=== PATIENT | female | born 1995 | race Caucasian/White ===

== ENCOUNTER → 2017-10-27 | Outpatient (CLI) | payer OTHER ==
[~2017-10-27] MED LIST: AMT50 PO; ASPI-390 PO; DICY10CA12 PO; ESCI1TAB9 PO; FEXO1TAB46 PO; GADAVIST IV PRN; GLUCAGON FOR INJ 1 MG VIAL IM SCH; LORA-741 PO; MRC50 PO; NURSING VERBAL MED ORDER ONE; ONDA4TAB7 SL; PENT100C6 PO; VNCS150 PEG
--- NOTE | 2017-10-27 10:15 | DIAGNOSTIC IMAGING REPORT ---
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 TECHNIQUE: Multisequence, multiplanar MR imaging of the abdomen and pelvis was performed after the administration of oral and intravenous contrast. IV contrast: 6 mL of Gadavist. COMPARISON: None. FINDINGS: Localizer images: Unremarkable. Lung bases: Lung bases clear. Normal heart size. No pericardial or pleural effusion. Liver: Normal morphology. No liver lesion. Patent hepatic vasculature. Biliary: No intrahepatic or extrahepatic biliary ductal dilatation. Normal gallbladder. Pancreas: Normal. Spleen: Normal. Adrenal glands: Normal. Kidneys and ureters: Normal. No hydronephrosis. Bladder: Normal. Pelvic organs: Uterus and ovaries normal. Bowel: Suboptimal opacification and distention of proximal small bowel. Allowing for this, the bowel is normal. No abnormal bowel wall thickening or hyperenhancement. No perienteric or pericolonic inflammatory change. No bowel obstruction. Peritoneal cavity: No free fluid or intraperitoneal gas. Lymph nodes: No enlarged lymph nodes in the abdomen or pelvis. Vasculature: Aorta and IVC patent and normal in caliber. Abdominal wall: Normal. Musculoskeletal: Normal. IMPRESSION: 1. No acute intra-abdominal pathology. No MR evidence of active inflammation in the bowel. Electronically signed by: Peng Carlos M.D. 10/27/2017 10:13 AM Dictated Date/Time: 10/27/2017 10:05 AM
== END | disposition home or self-care (01) ==
LOC: C.MRI 08:10
PROVIDERS: ATTEND Internal Medicine
DX: K50.819 Crohn's disease of both small and large intestine with unspecified complications (principal)

== ENCOUNTER 2022-09-12 17:23 | Inpatient (IN) ==
[2022-09-12] MEDS ORDERED: OXYTOCIN 30 UNITS/500 ML BAG IV PRN (18:26)
[2022-09-12] MEDS ORDERED: LIDOCAINE 1% LOCAL 20 ML VIAL INFIL PRN (18:26)
[2022-09-12] MEDS ORDERED: hydrALAZINE HCL 20 MG/ML VIAL IV STA (18:29)
[2022-09-12] MEDS: LACTATED RINGER'S 1,000 ML IV PRN (18:58)
[2022-09-12] MEDS: MAGNESIUM SULFATE / WTR 40 GM/1,000 ML BAG IV SCH (19:07)
[2022-09-12 19:10] LABS: Hematocrit (blood only) 38.5 % (37.0-47.0); Hemoglobin 13.6 g/dl (12.0-16.0); Mean Corpuscular Hemoglobin 33.7 pg (25.0-34.0); Mean Corpuscular Hgb Conc 35.3 g/dL (32.0-36.0); Mean Corpuscular Volume 95.3 fL (80.0-100.0); Mean Platelet Volume 10.6 fL (9.4-12.4); Platelet Count 197 K/uL (130-400); RDW Coefficient of Variation 13.2 % (11.5-14.5); RDW Standard Deviation 45.7 fL (36.4-46.3); Red Blood Count 4.04 M/uL (4.20-5.40); White Blood Count 8.92 K/ul (4.8-10.8)
[2022-09-12] MEDS: MAG SULFATE 4GM BOLUS FROM BAG IV ONE ×2 (19:10→19:11)
[2022-09-12 19:26] LABS: Albumin Globulin Ratio 1.2 (0.9-2); Albumin Level 3.8 gm/dl (3.4-5.0); BUN Creatinine Ratio 16.4 (10-20); Bilirubin,Total 0.4 mg/dl (0.2-1.0); Calcium 9.6 mg/dl (8.5-10.1); Creatinine Clr Calc Pharmacy 156.4 ml/min; Est GFR (Non-African American) 122.5 ml/min; Globulin 3.2 gm/dl (2.5-4.0); Potassium 3.6 mmol/L (3.5-5.1)
[2022-09-12] MEDS: LABETALOL HCL 200 MG TAB PO SCH (19:49)
--- NOTE | 2022-09-12 20:51 | Obstetrical Progress Note ---
Date of Service September 12, 2022 Assessment & Plan (1) Gestational hypertension: Plan: Pt admitted for elevated BP On arrival to L&D, BP was 160/100's No proteinuria on dipstick Pt reported headache but no RUQ pain, SOB or visual changes pt received IV hydralazine and was started on labetalol Magnesium sulphate was started for seizure prophylaxis PIH labs were ordered BP stabilized at 138/88 FHR; CAT1 Ctx; None 'VE Cl/50%/post Quijano bulb placed in cervix with 30cc saline w/o difficulty Will start Pitocin augmentation Plan Continue with labor induction Will stop Magnesium if PIH labs are Nml Admission and Anticipated Discharge Date Admission Date: September 12, 2022 Results & Data ([facility]) Vital Signs (Past 12 Hours) Vital Signs Temp Pulse Resp BP Pulse Ox 09/12/22 20:00 18 09/12/22 17:41 37.2 C 18 09/12/22 20:40 95 H 100 09/12/22 20:35 98 H 100 09/12/22 20:33 103 H 138/88 09/12/22 20:30 111 H 99 09/12/22 20:25 100 H 98 09/12/22 20:20 98 H 99 09/12/22 20:18 93 H 134/87 09/12/22 20:15 98 H 99 09/12/22 20:10 97 H 99 09/12/22 20:05 96 H 99 09/12/22 20:03 98 H 156/97 H 09/12/22 20:00 105 H 100 09/12/22 19:55 107 H 91 09/12/22 19:54 107 H 90 09/12/22 19:50 105 H 99 09/12/22 19:48 108 H 159/108 H 09/12/22 19:45 101 H 98 09/12/22 19:40 103 H 98 09/12/22 19:07 20 09/12/22 19:35 101 H 99 09/12/22 19:34 94 H 163/112 H 09/12/22 19:30 97 H 96 09/12/22 19:26 107 H 93 09/12/22 19:25 72 98 09/12/22 19:20 114 H 97 09/12/22 19:18 96 H 144/88 H 09/12/22 19:15 104 H 96 09/12/22 19:10 96 H 96 09/12/22 19:09 85 94 09/12/22 19:08 81 153/105 H 09/12/22 19:00 36.8 C 76 18 150/101 H 09/12/22 18:37 90 184/125 H 09/12/22 18:22 90 167/107 H 09/12/22 18:07 70 155/110 H 09/12/22 17:52 73 153/106 H 09/12/22 17:35 85 160/106 H
[2022-09-12 20:57] LABS: Total Protein Urine Random 15.9 mg/dl (0-11.9)
[2022-09-12 21:02] LABS: Creatinine Urine Random 16.5 mg/dl
[2022-09-12] MEDS: OXYTOCIN 30 UNITS/500 ML BAG IV PRN (21:40)
--- NOTE | 2022-09-13 05:56 | Obstetrical Progress Note ---
Date of Service September 13, 2022 Assessment & Plan (1) Gestational hypertension: Plan: Pt doing well Preeclampsia on Mag and tolerating it well Stable BP 131/87 FHR: CAT1 Ctx; irregular On Pitocin SROM at Midnight on 09/13/22 VE; 5-6/50/-1 IUPC placed w/o difficulty continue labor induction Admission and Anticipated Discharge Date Admission Date: September 12, 2022 Results & Data ([facility]) Vital Signs (Past 12 Hours) Vital Signs Temp Pulse Resp BP Pulse Ox 09/13/22 04:00 18 09/13/22 05:00 18 09/13/22 03:00 18 09/13/22 02:00 18 09/13/22 01:00 18 09/13/22 00:00 18 09/12/22 23:00 18 09/12/22 22:00 18 09/12/22 21:00 18 09/12/22 20:00 18 09/13/22 05:50 97 H 98 09/13/22 05:45 94 H 99 09/13/22 05:40 94 H 96 09/13/22 05:35 93 H 98 09/13/22 05:33 97 H 131/87 09/13/22 05:30 93 H 99 09/13/22 05:25 103 H 99 09/13/22 05:20 101 H 94 09/13/22 05:00 37.2 C 09/13/22 05:18 101 H 93 09/13/22 05:15 111 H 95 09/13/22 05:10 102 H 94 09/13/22 05:05 97 H 94 09/13/22 05:04 93 H 124/75 09/13/22 05:00 96 H 95 09/13/22 04:55 94 H 97 09/13/22 04:50 108 H 97 09/13/22 04:45 96 H 97 09/13/22 04:40 95 H 96 09/13/22 04:35 100 H 98 09/13/22 04:34 97 H 141/78 H 09/13/22 04:30 100 H 96 09/13/22 04:27 95 H 94 09/13/22 04:25 95 H 96 09/13/22 04:20 97 H 95 09/13/22 04:15 96 H 95 09/13/22 04:10 96 H 95 09/13/22 04:05 98 H 97 09/13/22 04:04 100 H 128/85 02 04:00 98 H 95 09/13/22 03:55 92 H 96 09/13/22 03:50 89 96 09/13/22 03:45 94 H 97 09/13/22 03:40 95 H 96 09/13/22 03:35 86 97 02 03:33 83 135/87 09/13/22 03:30 90 97 09/13/22 03:25 85 98 09/13/22 03:20 93 H 98 09/13/22 03:15 86 98 09/13/22 03:11 88 94 09/13/22 03:10 89 99 09/13/22 03:05 89 138/85 99 09/13/22 03:00 37.0 C 97 H 98 09/13/22 02:55 91 H 99 09/13/22 02:50 91 H 98 09/13/22 02:45 84 97 09/13/22 02:40 94 H 99 09/13/22 02:35 97 H 99 09/13/22 02:33 101 H 144/95 H 09/13/22 02:30 91 H 98 09/13/22 02:25 92 H 97 09/13/22 02:20 98 H 97 09/13/22 02:15 91 H 98 09/13/22 02:10 93 H 96 09/13/22 02:05 91 H 97 09/13/22 02:03 83 132/85 09/13/22 02:00 90 97 09/13/22 01:55 89 96 09/13/22 01:50 89 96 09/13/22 01:45 89 98 09/13/22 01:40 90 97 09/13/22 01:35 94 H 96 09/13/22 01:33 87 139/88 02 01:30 92 H 97 09/13/22 01:25 90 96 09/13/22 01:20 90 98 09/13/22 01:15 93 H 97 09/13/22 01:10 94 H 98 09/13/22 01:05 104 H 99 09/13/22 01:04 96 H 136/82 09/13/22 01:00 99 H 99 09/13/22 00:55 92 H 99 09/13/22 00:50 96 H 99 09/13/22 00:45 37.0 C 109 H 98 09/13/22 00:41 98 H 94 09/13/22 00:40 99 H 95 09/13/22 00:35 101 H 94 09/13/22 00:34 100 H 116/68 09/13/22 00:32 99 H 94 09/13/22 00:30 103 H 94 09/13/22 00:25 98 H 95 09/13/22 00:20 103 H 95 09/13/22 00:18 98 H 93 09/13/22 00:15 104 H 95 09/13/22 00:13 100 H 94 09/13/22 00:10 99 H 93 09/13/22 00:08 97 H 94 09/13/22 00:05 100 H 95 09/13/22 00:04 96 H 124/71 09/13/22 00:01 101 H 94 09/13/22 00:00 98 H 95 09/12/22 23:55 95 H 94 09/12/22 23:53 97 H 94 09/12/22 23:50 96 H 94 09/12/22 23:46 93 H 94 09/12/22 23:45 96 H 95 09/12/22 23:40 96 H 95 09/12/22 23:36 92 H 94 09/12/22 23:35 92 H 94 09/12/22 23:33 88 117/74 09/12/22 23:31 94 H 94 09/12/22 23:30 96 H 96 09/12/22 23:25 94 H 94 09/12/22 23:20 98 H 95 09/12/22 23:19 95 H 94 09/12/22 23:15 84 96 09/12/22 23:10 80 98 09/12/22 23:05 79 97 09/12/22 23:03 80 135/81 09/12/22 23:00 36.6 C 81 98 09/12/22 22:55 83 98 09/12/22 22:50 81 99 09/12/22 22:45 85 98 09/12/22 22:40 84 98 09/12/22 22:35 80 99 09/12/22 22:33 82 139/83 09/12/22 22:30 81 98 09/12/22 22:25 87 98 09/12/22 22:20 89 97 09/12/22 22:19 91 H 137/87 09/12/22 22:15 85 97 09/12/22 22:10 91 H 97 09/12/22 22:05 89 98 09/12/22 22:03 91 H 151/87 H 09/12/22 22:00 86 98 09/12/22 21:55 84 98 09/12/22 21:50 84 98 09/12/22 21:48 87 137/83 09/12/22 21:45 89 98 09/12/22 21:40 89 98 09/12/22 21:35 84 98 09/12/22 21:34 82 146/86 H 09/12/22 21:30 88 98 09/12/22 21:25 85 98 09/12/22 21:20 88 98 09/12/22 21:19 85 157/105 H 09/12/22 21:15 87 97 09/12/22 21:10 89 98 09/12/22 21:05 90 99 09/12/22 21:03 84 136/81 09/12/22 21:00 93 H 99 09/12/22 20:55 92 H 98 09/12/22 20:50 101 H 100 09/12/22 20:48 93 H 134/84 09/12/22 20:45 97 H 99 09/12/22 20:40 95 H 100 09/12/22 20:35 98 H 100 09/12/22 20:33 103 H 138/88 09/12/22 20:30 111 H 99 09/12/22 20:25 100 H 98 09/12/22 20:20 98 H 99 09/12/22 20:18 93 H 134/87 09/12/22 20:15 98 H 99 09/12/22 20:10 97 H 99 09/12/22 20:05 96 H 99 09/12/22 20:03 98 H 156/97 H 09/12/22 20:00 105 H 100 09/12/22 19:55 107 H 91 09/12/22 19:54 107 H 90 09/12/22 19:50 105 H 99 09/12/22 19:48 108 H 159/108 H 09/12/22 19:45 101 H 98 09/12/22 19:40 103 H 98 09/12/22 19:07 20 09/12/22 19:35 101 H 99 09/12/22 19:34 94 H 163/112 H 09/12/22 19:30 97 H 96 09/12/22 19:26 107 H 93 09/12/22 19:25 72 98 09/12/22 19:20 114 H 97 09/12/22 19:18 96 H 144/88 H 09/12/22 19:15 104 H 96 09/12/22 19:10 96 H 96 09/12/22 19:09 85 94 09/12/22 19:08 81 153/105 H 09/12/22 19:00 36.8 C 76 18 150/101 H 09/12/22 18:37 90 184/125 H 09/12/22 18:22 90 167/107 H 09/12/22 18:07 70 155/110 H
[2022-09-13 06:26] LABS: Basophils # (auto) 0.02 K/uL (0-0.2); Basophils % (auto) 0.2 %; Hematocrit (blood only) 35.5 % (37.0-47.0); Hemoglobin 12.5 g/dl (12.0-16.0); Immature Granulocytes # (auto) 0.05 K/uL (0.01-0.20); Immature Granulocytes % (auto) 0.4 %; Lymphocytes # (auto) 1.52 K/uL (1.2-3.4); Lymphocytes % (auto) 12.3 %; Mean Corpuscular Hgb Conc 35.2 g/dL (32.0-36.0); Mean Corpuscular Volume 96.5 fL (80.0-100.0); Mean Platelet Volume 10.6 fL (9.4-12.4); Monocytes # (auto) 0.75 K/uL (0.11-0.59); Monocytes % (auto) 6.1 %; Neutrophils # (auto) 9.97 K/uL (1.40-6.50); Platelet Count 196 K/uL (130-400); RDW Coefficient of Variation 13.3 % (11.5-14.5); RDW Standard Deviation 47.1 fL (36.4-46.3); Red Blood Count 3.68 M/uL (4.20-5.40); White Blood Count 12.31 K/ul (4.8-10.8)
[2022-09-13 06:44] LABS: Albumin Globulin Ratio 1.1 (0.9-2); Albumin Level 3.3 gm/dl (3.4-5.0); BUN Creatinine Ratio 9.2 (10-20); Bilirubin,Total 0.4 mg/dl (0.2-1.0); Calcium 7.6 mg/dl (8.5-10.1); Creatinine Clr Calc Pharmacy 146.8 ml/min; Est GFR (African American) 139.1 ml/min; Globulin 2.9 gm/dl (2.5-4.0); Potassium 3.7 mmol/L (3.5-5.1); Total Protein 6.2 gm/dl (6.0-8.3)
[2022-09-13] MEDS: LACTATED RINGER'S 1,000 ML IV PRN ×3 (06:44→20:59)
[2022-09-13] MEDS ORDERED: ePHEDrine sulfate 50 MG/ML AMP ONE (07:12)
[2022-09-13] MEDS ORDERED: fentaNYL 2MCG/ML ROPIVACAINE 1.25MG/ML 100 ML BAG EPI ONE (07:13)
[2022-09-13] MEDS ORDERED: fentaNYL citrate 100 MCG/2 ML VIAL ONE ×2 (07:13→22:06)
[2022-09-13] MEDS ORDERED: BUPIVACAINE 0.25% 30 ML VIAL ONE ×2 (07:13→22:06)
[2022-09-13] MEDS ORDERED: LIDOCAINE 2%/EPINEPHRINE 1:200,000 20 ML SDV ONE (07:13)
[2022-09-13] MEDS ORDERED: SODIUM CHLORIDE 0.9% INJ 10 ML VIAL ONE ×2 (07:13→22:06)
--- NOTE | 2022-09-13 07:43 | Anesthesiology Consultation ---
Date of Service September 13, 2022 Assessment & Plan Chart Review Chart Review: Acceptable Risk for Surgery, Patient NOT seen in Pre Admission Testing and Acceptable Risk for Labor Epidural Consults Requested none ASA ASA2 Proposed Anesthesia Anesthesia Type: Labor Epidural and CSE History Height/Weight Height: 5 ft 8 in Weight: 86.183 kg Allergies Allergy/AdvReac Type Severity Reaction Status Date / Time No Known Allergies Allergy Verified 09/12/22 18:07 Medications Home Medications Medication Instructions Recorded Confirmed Last Taken ESCITALOPRAM OXALATE (LEXAPRO) 10 mg PO QAM #0 tabs 11/18/14 09/12/22 09/12/22 0600 ONDANSETRON (ZOFRAN ODT) 4 mg sublingual Q6H PRN Nausea or 11/18/14 09/12/22 Unknown Vomiting #6 tabs Stelara 90 SC Q8WK Chrons disease 09/12/22 07/25/22 iron,carbonyl 65 mg-vitamin C 125 1 tab PO BID 09/12/22 09/12/22 09/12/22 mg tablet,delayed release 0600 (Vitron-C) Active Medications Generic Name Dose Route Start Last Admin Trade Name Freq PRN Reason Stop Dose Admin Lactated Ringer's 1,000 mls @ 75 mls/hr 09/12/22 18:26 09/13/22 06:50 Lr IV 09/14/22 18:25 999 mls/hr .[id number] PRN Infusion L&D Protocol Protocol Magnesium Sulfate 40 gm in 1,000 mls @ 50 mls/hr 09/12/22 18:30 09/13/22 07:10 Magnesium Sulfate / Wtr IV 10/12/22 18:29 50 mls/hr .Q20H LEIGH ANN Infusion Oxytocin 30 units in 500 mls @ 16 mls/hr 09/12/22 20:51 09/13/22 06:40 Pitocin IV 09/14/22 20:50 0.96 units/hr .Q24H PRN 16 mls/hr Labor Induction/Augmentation Titration Protocol 0.96 UNITS/HR Labetalol HCl 200 mg 09/12/22 19:00 09/12/22 19:49 Labetalol Hcl 200 Mg Tab PO 10/12/22 18:59 200 mg Q12H LEIGH ANN Administration Past Medical History Medical History Anemia affecting Anxiety Herpes genitalia Interstitial cystitis Migraine Placenta succenturiata Exercise / Class Metabolic Activity II 4-5 Yardwork/Stairs/Walk up hill Past Surgical History Surgical History Hx of tonsillectomy [place] teeth extracted Past Anesthesia History No Hx of Anesthesia Complications and No Family Hx of Anesthesia Complications History of PONV No Hx of PONV and No Hx of Motion Sickness Social History Smoking Status: Never smoker Do You Dip or Chew Tobacco: No Hx Alcohol Use: No Hx Substance Use: No Physical Exam Vital Signs Last Vital Signs Temp 36.7 C 09/13/22 07:11 Pulse 101 H 09/13/22 07:40 Resp 20 09/13/22 07:11 BP 132/79 09/13/22 07:34 Pulse Ox 95 09/13/22 07:40 Testing Laboratory Results 09/13/22 06:09 09/13/22 06:09
[2022-09-13] MEDS ORDERED: NALBUPHINE HCL INJ 10 MG/ML AMP IV PRN (08:14)
[2022-09-13] MEDS ORDERED: ePHEDrine sulfate 50 MG/ML AMP IV PRN ×2 (08:14)
[2022-09-13] MEDS ORDERED: NALOXONE HCL 0.4 MG/1 ML VIAL/CARP IV PRN (08:14)
[2022-09-13] MEDS ORDERED: NALOXONE HCL 1 MG in SODIUM CHLORIDE 0.9% 1000ML 1,000 ML IV PRN (08:14)
[2022-09-13] MEDS ORDERED: ATROPINE SULFATE 0.1 MG/ML 10ML SYR IV PRN (08:14)
[2022-09-13] MEDS ORDERED: diphenhydrAMINE 50 MG/ML VIAL IV PRN (08:14)
[2022-09-13] MEDS ORDERED: PROMETHAZINE HCL 25 MG in SODIUM CHLORIDE 0.9% 50 ML IV PRN (08:14)
[2022-09-13] MEDS: LABETALOL HCL 200 MG TAB PO SCH ×2 (08:44→19:43)
[2022-09-13] MEDS: ONDANSETRON INJ 2 MG/ML 2 ML VIAL IV PRN ×2 (09:34→22:59)
[2022-09-13] MEDS ORDERED: BUTORPHANOL TARTRATE 1 MG/ML VIAL IV PRN (09:39)
[2022-09-13] MEDS: MAGNESIUM SULFATE / WTR 40 GM/1,000 ML BAG IV SCH (12:46)
[2022-09-13] MEDS: fentaNYL 2MCG/ML ROPIVACAINE 1.25MG/ML 100 ML BAG EPI PRN ×2 (17:13→22:58)
[2022-09-13] MEDS ORDERED: NURSING L&D Epidural Breakthrough Pain Update ONE (21:03)
--- NOTE | 2022-09-13 22:38 | Communication Note ---
Date of Service: September 13, 2022 At 2234, patient epidural catheter was bolused w/ 12 ml 0.17% bupivacaine + 100 mcgs fentanyl;negative aspiration w/ incremental injection;vital signs stable.
--- NOTE | 2022-09-13 22:56 | Labor Progress Brief Note ---
Date of Service September 13, 2022 Assessment & Plan Admission and Anticipated Discharge Date Admission Date: September 12, 2022 Physical Exam Genitourinary: Manual OB Exam: + cervical dilation 7 cm, + cervical effacement 80% and 90% and + station -1 OB Exam Monitor Tracing: + external FHT monitor used, + intra-uterine pressure catheter used, + category I and + normal FHT variability Results & Data ([facility]) Vital Signs (Past 12 Hours) Vital Signs Temp Pulse Resp BP Pulse Ox 09/13/22 20:15 18 09/13/22 21:00 18 09/13/22 19:10 18 09/13/22 19:10 18 09/13/22 15:30 20 09/13/22 22:50 79 95 09/13/22 22:48 70 93 09/13/22 22:45 87 97 09/13/22 22:43 82 129/84 09/13/22 22:40 80 96 09/13/22 22:37 75 92 09/13/22 22:35 84 96 09/13/22 22:30 87 95 09/13/22 22:28 87 130/79 09/13/22 22:25 75 96 09/13/22 22:20 75 97 09/13/22 22:15 90 97 09/13/22 22:14 77 123/78 09/13/22 22:10 76 95 09/13/22 22:05 76 95 09/13/22 22:00 78 18 96 09/13/22 21:59 76 122/74 09/13/22 21:56 75 94 09/13/22 21:55 78 96 09/13/22 21:50 75 95 09/13/22 21:45 78 96 09/13/22 21:44 83 129/76 09/13/22 21:40 78 95 09/13/22 21:36 79 94 09/13/22 21:35 78 96 09/13/22 21:00 18 09/13/22 21:00 18 09/13/22 21:30 74 18 95 09/13/22 21:28 76 119/66 09/13/22 21:25 85 97 09/13/22 21:20 80 95 09/13/22 21:15 76 120/69 95 09/13/22 21:12 78 94 09/13/22 21:10 75 95 09/13/22 21:07 74 94 09/13/22 21:05 85 97 09/13/22 21:00 94 09/13/22 21:00 78 09/13/22 21:00 77 94 09/13/22 20:58 83 125/77 09/13/22 20:55 81 94 09/13/22 20:53 79 93 09/13/22 20:50 80 96 09/13/22 20:45 84 93 09/13/22 20:44 83 129/86 09/13/22 20:40 86 95 09/13/22 20:39 81 94 09/13/22 20:35 78 93 09/13/22 20:33 81 94 09/13/22 20:30 37.0 C 84 18 93 09/13/22 20:28 77 09/13/22 20:28 81 119/69 94 09/13/22 20:25 87 94 09/13/22 20:20 78 94 09/13/22 20:17 74 94 09/13/22 20:15 84 98 09/13/22 20:13 75 120/75 09/13/22 20:10 92 H 97 09/13/22 20:08 84 94 09/13/22 20:05 89 97 09/13/22 20:00 80 18 95 09/13/22 19:58 77 121/82 09/13/22 19:55 85 98 09/13/22 19:50 86 97 09/13/22 19:45 81 99 09/13/22 19:44 81 122/74 09/13/22 19:40 85 99 09/13/22 19:35 78 99 09/13/22 19:30 78 18 99 09/13/22 19:28 72 127/90 09/13/22 19:25 73 98 09/13/22 19:20 68 98 09/13/22 19:15 36.5 C 82 18 98 09/13/22 19:13 67 127/93 09/13/22 19:10 71 98 09/13/22 19:05 74 99 09/13/22 19:00 78 99 09/13/22 18:58 72 132/94 09/13/22 18:55 94 09/13/22 18:55 68 09/13/22 18:55 68 96 09/13/22 18:50 80 98 09/13/22 18:45 83 98 09/13/22 18:43 68 135/102 H 09/13/22 18:40 77 96 09/13/22 18:35 75 96 09/13/22 18:30 72 97 09/13/22 18:28 73 133/96 09/13/22 18:25 74 98 09/13/22 18:20 73 98 09/13/22 17:59 20 09/13/22 17:59 20 09/13/22 18:15 72 97 09/13/22 18:13 77 138/97 09/13/22 18:10 78 97 09/13/22 18:05 73 98 09/13/22 18:00 70 96 09/13/22 17:58 69 131/92 09/13/22 17:55 71 97 09/13/22 17:50 74 98 09/13/22 17:45 72 97 09/13/22 17:43 71 136/91 09/13/22 17:40 74 96 09/13/22 17:35 76 98 09/13/22 17:30 70 131/83 96 09/13/22 17:01 20 09/13/22 17:01 37.0 C 20 09/13/22 17:25 69 96 09/13/22 17:20 78 99 09/13/22 17:15 85 97 09/13/22 17:13 80 120/78 09/13/22 17:10 94 H 95 09/13/22 17:08 79 94 09/13/22 17:05 90 95 09/13/22 17:03 84 94 09/13/22 17:00 76 96 09/13/22 16:58 79 113/65 09/13/22 16:54 79 94 09/13/22 16:55 80 94 09/13/22 16:50 85 95 09/13/22 16:49 80 94 09/13/22 16:45 77 96 09/13/22 16:43 78 111/67 09/13/22 16:40 82 96 09/13/22 16:35 82 97 09/13/22 16:30 80 96 09/13/22 16:28 74 117/72 09/13/22 16:25 81 97 09/13/22 16:20 74 97 02/25/23 16:15 74 97 09/13/22 16:13 72 113/70 09/13/22 16:10 81 98 09/13/22 16:05 85 98 09/13/22 16:00 76 98 09/13/22 15:58 81 18 121/75 09/13/22 15:55 82 97 09/13/22 15:50 87 98 09/13/22 15:45 89 99 09/13/22 15:44 80 136/90 09/13/22 15:40 78 98 09/13/22 15:35 74 97 09/13/22 15:30 89 100 09/13/22 15:28 75 126/80 09/13/22 15:25 73 98 09/13/22 15:20 75 98 09/13/22 15:15 81 97 09/13/22 15:13 75 124/78 09/13/22 15:10 83 95 09/13/22 15:05 81 95 09/13/22 15:01 85 94 09/13/22 15:00 82 95 09/13/22 14:58 36.9 C 81 18 113/73 09/13/22 14:55 83 96 09/13/22 14:51 80 93 09/13/22 14:50 88 96 09/13/22 14:45 80 95 09/13/22 14:43 78 121/79 09/13/22 14:40 78 95 09/13/22 14:35 77 95 09/13/22 14:30 75 98 09/13/22 14:28 77 118/81 09/13/22 14:25 78 97 09/13/22 14:20 76 99 09/13/22 13:59 18 09/13/22 13:59 18 09/13/22 14:15 82 99 09/13/22 14:13 74 126/81 09/13/22 14:10 72 95 09/13/22 14:05 71 95 09/13/22 14:00 75 95 09/13/22 13:58 72 122/79 09/13/22 13:55 74 94 09/13/22 13:50 76 97 09/13/22 13:45 77 98 09/13/22 13:43 67 125/85 09/13/22 13:40 78 95 09/13/22 13:36 69 94 09/13/22 13:35 69 95 09/13/22 13:30 78 121/79 95 09/13/22 13:25 76 97 09/13/22 12:59 18 09/13/22 12:59 36.5 C 18 09/13/22 13:20 79 97 09/13/22 13:15 77 97 09/13/22 13:13 70 123/84 09/13/22 13:10 82 97 09/13/22 13:05 76 97 09/13/22 13:00 84 97 09/13/22 12:58 75 122/82 09/13/22 12:55 78 97 09/13/22 12:50 69 95 09/13/22 12:45 79 96 09/13/22 12:44 77 20 126/81 09/13/22 12:40 79 94 09/13/22 12:35 87 95 09/13/22 12:34 81 94 09/13/22 12:30 83 95 09/13/22 12:28 76 09/13/22 12:28 75 115/73 94 09/13/22 12:25 81 96 09/13/22 12:20 79 95 09/13/22 12:18 78 94 09/13/22 12:15 84 96 09/13/22 12:13 76 121/75 09/13/22 12:12 80 94 09/13/22 12:10 81 96 09/13/22 12:05 87 96 09/13/22 12:01 78 94 09/13/22 11:59 18 09/13/22 11:59 18 09/13/22 12:00 83 94 09/13/22 11:58 80 114/67 09/13/22 11:56 84 94 09/13/22 11:55 87 95 09/13/22 11:49 83 94 09/13/22 11:50 82 95 09/13/22 11:45 80 94 09/13/22 11:43 84 118/73 09/13/22 11:41 80 94 09/13/22 11:40 81 94 09/13/22 11:35 80 96 09/13/22 11:34 88 93 09/13/22 11:29 80 02 11:30 87 95 09/13/22 11:29 84 116/74 94 09/13/22 11:25 91 H 96 09/13/22 11:23 82 94 09/13/22 11:20 88 94 09/13/22 11:07 20 09/13/22 11:07 37.0 C 20 09/13/22 11:17 81 94 09/13/22 11:15 88 96 09/13/22 11:13 84 120/75 09/13/22 11:10 80 97 09/13/22 11:05 86 98 09/13/22 11:00 87 95 09/13/22 10:58 81 129/73 09/13/22 10:57 84 94
[2022-09-14] MEDS ORDERED: CALCIUM CARBONATE 500 MG CHEWABLE TAB PO PRN (01:05)
[2022-09-14] MEDS ORDERED: Nursing to Pharmacy Communication SCH ×2 (01:15→05:30)
[2022-09-14] MEDS ORDERED: BUPIVACAINE 0.25% 30 ML VIAL ONE (01:51)
--- NOTE | 2022-09-14 02:12 | Communication Note ---
Date of Service: September 14, 2022 pt with increased pain. bolused 5ml of 2% lidocaine mixed with 5ml of 0.25% bupivicaine in divided doses. vss. no complications.
[2022-09-14] MEDS: OXYTOCIN 30 UNITS/500 ML BAG IV PRN (03:30)
[2022-09-14] MEDS: MAGNESIUM SULFATE / WTR 40 GM/1,000 ML BAG IV SCH ×2 (05:28→09:21)
[2022-09-14] MEDS: fentaNYL 2MCG/ML ROPIVACAINE 1.25MG/ML 100 ML BAG EPI PRN (05:54)
--- NOTE | 2022-09-14 06:20 | Labor Progress Brief Note ---
Date of Service September 14, 2022 Assessment & Plan Admission and Anticipated Discharge Date Admission Date: September 12, 2022 Physical Exam Genitourinary: Manual OB Exam: + cervical dilation 7 cm, + cervical effacement 90% and + station -1 OB Exam Monitor Tracing: + external FHT monitor used, + external uterine monitor used, + category I and + normal FHT variability gave patient option to have for failure to progress vs. continue to labor they will decide and let me know Results & Data ([facility]) Vital Signs (Past 12 Hours) Vital Signs Temp Pulse Resp BP Pulse Ox 09/14/22 03:00 16 09/14/22 02:00 18 09/14/22 01:00 18 09/14/22 00:00 18 09/13/22 23:00 18 09/13/22 20:15 18 09/13/22 21:00 18 09/13/22 19:10 18 09/13/22 19:10 18 09/14/22 06:15 73 153/91 H 97 09/14/22 06:10 85 99 09/14/22 06:05 89 99 09/14/22 06:01 75 118/85 09/14/22 06:00 37.0 C 82 18 96 09/14/22 05:55 68 99 09/14/22 05:50 87 98 09/14/22 05:45 74 96 09/14/22 05:44 70 136/86 09/14/22 05:40 74 95 09/14/22 05:35 80 96 09/14/22 05:30 85 18 98 09/14/22 05:29 85 138/90 09/14/22 05:25 95 H 94 09/14/22 05:20 81 94 09/14/22 05:15 77 95 09/14/22 05:14 80 129/82 09/14/22 05:10 77 95 09/14/22 05:05 80 94 09/14/22 05:00 37.0 C 74 16 95 09/14/22 04:59 75 127/77 09/14/22 04:55 76 95 09/14/22 04:50 77 96 09/14/22 04:45 73 95 09/14/22 04:44 71 121/77 09/14/22 04:40 73 94 02/26/23 04:35 77 96 09/14/22 04:30 74 16 95 09/14/22 04:29 76 116/70 09/14/22 04:25 78 95 09/14/22 04:20 75 95 09/14/22 03:30 16 09/14/22 03:30 36.9 C 16 09/14/22 04:15 76 94 09/14/22 04:14 74 118/72 09/14/22 04:10 75 94 09/14/22 04:05 75 94 09/14/22 04:00 83 16 95 09/14/22 03:59 84 117/66 09/14/22 03:55 82 95 09/14/22 03:50 81 95 09/14/22 03:45 83 94 09/14/22 03:44 83 117/68 09/14/22 03:40 83 94 09/14/22 03:35 82 95 09/14/22 03:30 36.9 C 79 16 94 09/14/22 03:29 79 120/71 09/14/22 03:25 83 94 09/14/22 03:20 82 94 09/14/22 03:15 81 94 09/14/22 03:14 80 105/61 09/14/22 03:10 80 94 09/14/22 03:05 77 94 09/14/22 03:00 77 16 94 09/14/22 02:59 76 109/63 09/14/22 02:55 72 94 09/14/22 02:50 70 93 09/14/22 02:45 69 94 09/14/22 02:44 80 101/63 09/14/22 02:40 71 94 09/14/22 02:39 76 101/64 09/14/22 02:35 76 102/67 94 09/14/22 02:30 71 16 94 09/14/22 02:29 68 104/58 L 09/14/22 02:25 69 95 09/14/22 02:23 69 95/52 L 09/14/22 02:20 67 96 09/14/22 02:15 68 96 09/14/22 02:10 87 97 09/14/22 02:09 84 125/81 09/14/22 02:05 81 95 09/14/22 02:03 74 117/70 09/14/22 02:00 87 18 95 02/26/23 01:58 75 117/69 09/14/22 01:55 74 93 09/14/22 01:50 76 94 09/14/22 01:45 76 94 09/14/22 01:43 72 122/71 09/14/22 01:40 72 94 09/14/22 01:35 95 H 96 09/14/22 01:30 73 18 94 09/14/22 01:28 76 120/70 09/14/22 01:25 74 94 09/14/22 01:20 74 94 09/14/22 01:15 78 96 09/14/22 01:14 73 124/76 09/14/22 01:10 76 94 09/14/22 01:05 78 96 09/14/22 01:00 36.9 C 79 18 98 09/14/22 00:59 76 132/82 09/14/22 00:55 80 95 09/14/22 00:50 77 98 09/14/22 00:45 70 94 09/14/22 00:43 70 142/86 H 09/14/22 00:40 71 94 09/14/22 00:35 70 94 09/14/22 00:30 72 18 94 09/14/22 00:28 71 137/80 09/13/22 23:00 18 09/13/22 23:00 18 09/14/22 00:25 71 94 09/14/22 00:20 71 93 09/14/22 00:15 71 94 09/14/22 00:13 70 132/80 09/14/22 00:10 72 94 09/14/22 00:05 69 94 09/14/22 00:00 67 93 09/13/22 23:59 69 130/78 09/13/22 23:55 70 93 09/13/22 23:50 70 94 09/13/22 23:45 69 93 09/13/22 23:44 70 139/76 09/13/22 23:40 73 94 09/13/22 23:35 66 94 09/13/22 23:30 69 18 96 09/13/22 23:28 69 134/83 09/13/22 23:25 73 95 09/13/22 23:20 94 09/13/22 23:20 70 09/13/22 23:20 72 95 09/13/22 23:15 94 09/13/22 23:15 67 09/13/22 23:15 68 95 09/13/22 23:14 76 141/76 H 09/13/22 23:10 78 94 09/13/22 23:05 75 96 09/13/22 23:02 73 93 09/13/22 23:00 88 18 96 09/13/22 22:59 101 H 157/94 H 09/13/22 22:56 68 122/81 09/13/22 22:55 71 119/81 93 09/13/22 22:50 79 95 09/13/22 22:48 70 93 09/13/22 22:45 87 97 09/13/22 22:43 82 129/84 09/13/22 22:40 80 96 09/13/22 22:37 75 92 09/13/22 22:35 84 96 09/13/22 22:30 37.0 C 87 18 95 09/13/22 22:28 87 130/79 09/13/22 22:25 75 96 09/13/22 22:20 75 97 09/13/22 22:15 90 97 09/13/22 22:14 77 123/78 09/13/22 22:10 76 95 09/13/22 22:05 76 95 09/13/22 22:00 78 18 96 09/13/22 21:59 76 122/74 09/13/22 21:56 75 94 09/13/22 21:55 78 96 09/13/22 21:50 75 95 09/13/22 21:45 78 96 09/13/22 21:44 83 129/76 09/13/22 21:40 78 95 09/13/22 21:36 79 94 09/13/22 21:35 78 96 09/13/22 21:00 18 09/13/22 21:00 18 09/13/22 21:30 74 18 95 09/13/22 21:28 76 119/66 09/13/22 21:25 85 97 09/13/22 21:20 80 95 09/13/22 21:15 76 120/69 95 09/13/22 21:12 78 94 09/13/22 21:10 75 95 09/13/22 21:07 74 94 09/13/22 21:05 85 97 0225/23 21:00 94 09/13/22 21:00 78 02 21:00 77 94 09/13/22 20:58 83 125/77 09/13/22 20:55 81 94 09/13/22 20:53 79 93 09/13/22 20:50 80 96 09/13/22 20:45 84 93 09/13/22 20:44 83 129/86 09/13/22 20:40 86 95 09/13/22 20:39 81 94 09/13/22 20:35 78 93 09/13/22 20:33 81 94 09/13/22 20:30 37.0 C 84 18 93 09/13/22 20:28 77 09/13/22 20:28 81 119/69 94 09/13/22 20:25 87 94 09/13/22 20:20 78 94 09/13/22 20:17 74 94 09/13/22 20:15 84 98 09/13/22 20:13 75 120/75 09/13/22 20:10 92 H 97 09/13/22 20:08 84 94 09/13/22 20:05 89 97 09/13/22 20:00 80 18 95 09/13/22 19:58 77 121/82 09/13/22 19:55 85 98 09/13/22 19:50 86 97 09/13/22 19:45 81 99 09/13/22 19:44 81 122/74 09/13/22 19:40 85 99 09/13/22 19:35 78 99 09/13/22 19:30 78 18 99 09/13/22 19:28 72 127/90 09/13/22 19:25 73 98 09/13/22 19:20 68 98 09/13/22 19:15 36.5 C 82 18 98 09/13/22 19:13 67 127/93 09/13/22 19:10 71 98 09/13/22 19:05 74 99 09/13/22 19:00 78 99 09/13/22 18:58 72 132/94 09/13/22 18:55 94 09/13/22 18:55 68 02 18:55 68 96 09/13/22 18:50 80 98 09/13/22 18:45 83 98 09/13/22 18:43 68 135/102 H 09/13/22 18:40 77 96 09/13/22 18:35 75 96 09/13/22 18:30 72 97 09/13/22 18:28 73 133/96 09/13/22 18:25 74 98 09/13/22 18:20 73 98
[2022-09-14] MEDS ORDERED: CITRIC ACID/SODIUM CITRATE 15 ML UDC PO SCH (06:30)
[2022-09-14] MEDS ORDERED: ceFAZolin 2000MG 2,000 MG/15 ML SYR IV SCH (06:30)
[2022-09-14] MEDS ORDERED: LACTATED RINGER'S 1,000 ML IV SCH ×2 (06:30→09:15)
--- NOTE | 2022-09-14 06:41 | Labor Progress Brief Note ---
Date of Service September 14, 2022 Assessment & Plan Admission and Anticipated Discharge Date Admission Date: September 12, 2022 Physical Exam Physical Exam: patient is in agreement with consent signed anesthesia and pediatric registered nurse notified Results & Data ([facility]) Vital Signs (Past 12 Hours) Vital Signs Temp Pulse Resp BP Pulse Ox 09/14/22 03:00 16 09/14/22 02:00 18 09/14/22 01:00 18 09/14/22 00:00 18 09/13/22 23:00 18 09/13/22 20:15 18 09/13/22 21:00 18 09/13/22 19:10 18 09/13/22 19:10 18 09/14/22 06:35 82 99 09/14/22 06:30 78 18 95 09/14/22 06:29 76 137/84 09/14/22 06:25 80 98 09/14/22 06:20 82 96 09/14/22 06:15 73 153/91 H 97 09/14/22 06:10 85 99 09/14/22 06:05 89 99 09/14/22 06:01 75 118/85 09/14/22 06:00 37.0 C 82 18 96 09/14/22 05:55 68 99 09/14/22 05:50 87 98 09/14/22 05:45 74 96 09/14/22 05:44 70 136/86 09/14/22 05:40 74 95 09/14/22 05:35 80 96 09/14/22 05:30 85 18 98 09/14/22 05:29 85 138/90 09/14/22 05:25 95 H 94 09/14/22 05:20 81 94 09/14/22 05:15 77 95 09/14/22 05:14 80 129/82 09/14/22 05:10 77 95 09/14/22 05:05 80 94 09/14/22 05:00 37.0 C 74 16 95 09/14/22 04:59 75 127/77 09/14/22 04:55 76 95 09/14/22 04:50 77 96 09/14/22 04:45 73 95 09/14/22 04:44 71 121/77 09/14/22 04:40 73 94 09/14/22 04:35 77 96 09/14/22 04:30 74 16 95 09/14/22 04:29 76 116/70 09/14/22 04:25 78 95 09/14/22 04:20 75 95 09/14/22 03:30 16 09/14/22 03:30 36.9 C 16 09/14/22 04:15 76 94 09/14/22 04:14 74 118/72 09/14/22 04:10 75 94 09/14/22 04:05 75 94 09/14/22 04:00 83 16 95 09/14/22 03:59 84 117/66 09/14/22 03:55 82 95 09/14/22 03:50 81 95 09/14/22 03:45 83 94 09/14/22 03:44 83 117/68 09/14/22 03:40 83 94 09/14/22 03:35 82 95 09/14/22 03:30 36.9 C 79 16 94 09/14/22 03:29 79 120/71 09/14/22 03:25 83 94 09/14/22 03:20 82 94 09/14/22 03:15 81 94 09/14/22 03:14 80 105/61 09/14/22 03:10 80 94 09/14/22 03:05 77 94 09/14/22 03:00 77 16 94 09/14/22 02:59 76 109/63 09/14/22 02:55 72 94 09/14/22 02:50 70 93 09/14/22 02:45 69 94 09/14/22 02:44 80 101/63 09/14/22 02:40 71 94 09/14/22 02:39 76 101/64 09/14/22 02:35 76 102/67 94 09/14/22 02:30 71 16 94 09/14/22 02:29 68 104/58 L 09/14/22 02:25 69 95 09/14/22 02:23 69 95/52 L 09/14/22 02:20 67 96 09/14/22 02:15 68 96 09/14/22 02:10 87 97 09/14/22 02:09 84 125/81 09/14/22 02:05 81 95 09/14/22 02:03 74 117/70 09/14/22 02:00 87 18 95 09/14/22 01:58 75 117/69 09/14/22 01:55 74 93 09/14/22 01:50 76 94 09/14/22 01:45 76 94 09/14/22 01:43 72 122/71 09/14/22 01:40 72 94 09/14/22 01:35 95 H 96 09/14/22 01:30 73 18 94 09/14/22 01:28 76 120/70 09/14/22 01:25 74 94 09/14/22 01:20 74 94 09/14/22 01:15 78 96 09/14/22 01:14 73 124/76 09/14/22 01:10 76 94 09/14/22 01:05 78 96 09/14/22 01:00 36.9 C 79 18 98 09/14/22 00:59 76 132/82 09/14/22 00:55 80 95 09/14/22 00:50 77 98 09/14/22 00:45 70 94 09/14/22 00:43 70 142/86 H 09/14/22 00:40 71 94 09/14/22 00:35 70 94 09/14/22 00:30 72 18 94 09/14/22 00:28 71 137/80 09/13/22 23:00 18 09/13/22 23:00 18 09/14/22 00:25 71 94 09/14/22 00:20 71 93 09/14/22 00:15 71 94 09/14/22 00:13 70 132/80 09/14/22 00:10 72 94 09/14/22 00:05 69 94 09/14/22 00:00 67 93 09/13/22 23:59 69 130/78 09/13/22 23:55 70 93 09/13/22 23:50 70 94 09/13/22 23:45 69 93 02 23:44 70 139/76 09/13/22 23:40 73 94 09/13/22 23:35 66 94 09/13/22 23:30 69 18 96 09/13/22 23:28 69 134/83 02 23:25 73 95 02 23:20 94 02 23:20 70 02 23:20 72 95 09/13/22 23:15 94 09/13/22 23:15 67 09/13/22 23:15 68 95 09/13/22 23:14 76 141/76 H 09/13/22 23:10 78 94 09/13/22 23:05 75 96 09/13/22 23:02 73 93 09/13/22 23:00 88 18 96 09/13/22 22:59 101 H 157/94 H 09/13/22 22:56 68 122/81 09/13/22 22:55 71 119/81 93 09/13/22 22:50 79 95 09/13/22 22:48 70 93 09/13/22 22:45 87 97 09/13/22 22:43 82 129/84 09/13/22 22:40 80 96 09/13/22 22:37 75 92 09/13/22 22:35 84 96 09/13/22 22:30 37.0 C 87 18 95 09/13/22 22:28 87 130/79 09/13/22 22:25 75 96 09/13/22 22:20 75 97 09/13/22 22:15 90 97 09/13/22 22:14 77 123/78 09/13/22 22:10 76 95 09/13/22 22:05 76 95 09/13/22 22:00 78 18 96 09/13/22 21:59 76 122/74 09/13/22 21:56 75 94 09/13/22 21:55 78 96 09/13/22 21:50 75 95 09/13/22 21:45 78 96 09/13/22 21:44 83 129/76 09/13/22 21:40 78 95 09/13/22 21:36 79 94 09/13/22 21:35 78 96 09/13/22 21:00 18 09/13/22 21:00 18 09/13/22 21:30 74 18 95 09/13/22 21:28 76 119/66 09/13/22 21:25 85 97 09/13/22 21:20 80 95 09/13/22 21:15 76 120/69 95 09/13/22 21:12 78 94 09/13/22 21:10 75 95 09/13/22 21:07 74 94 09/13/22 21:05 85 97 09/13/22 21:00 94 09/13/22 21:00 78 02 21:00 77 94 09/13/22 20:58 83 125/77 09/13/22 20:55 81 94 09/13/22 20:53 79 93 09/13/22 20:50 80 96 09/13/22 20:45 84 93 09/13/22 20:44 83 129/86 09/13/22 20:40 86 95 09/13/22 20:39 81 94 09/13/22 20:35 78 93 09/13/22 20:33 81 94 09/13/22 20:30 37.0 C 84 18 93 09/13/22 20:28 77 09/13/22 20:28 81 119/69 94 09/13/22 20:25 87 94 09/13/22 20:20 78 94 09/13/22 20:17 74 94 09/13/22 20:15 84 98 09/13/22 20:13 75 120/75 09/13/22 20:10 92 H 97 09/13/22 20:08 84 94 09/13/22 20:05 89 97 09/13/22 20:00 80 18 95 09/13/22 19:58 77 121/82 09/13/22 19:55 85 98 09/13/22 19:50 86 97 09/13/22 19:45 81 99 09/13/22 19:44 81 122/74 09/13/22 19:40 85 99 09/13/22 19:35 78 99 09/13/22 19:30 78 18 99 09/13/22 19:28 72 127/90 09/13/22 19:25 73 98 09/13/22 19:20 68 98 09/13/22 19:15 36.5 C 82 18 98 09/13/22 19:13 67 127/93 09/13/22 19:10 71 98 09/13/22 19:05 74 99 09/13/22 19:00 78 99 09/13/22 18:58 72 132/94 09/13/22 18:55 94 09/13/22 18:55 68 02 18:55 68 96 02 18:50 80 98 09/13/22 18:45 83 98 09/13/22 18:43 68 135/102 H 09/13/22 18:40 77 96
--- NOTE | 2022-09-14 07:06 | History & Physical Bridge Note ---
Date of Service September 14, 2022 History & Physical Bridge Note I have examined the patient, reviewed the History & Physical and in the interval since the performance of the History & Physical I have noted the following changes of clinical significance: no changes noted
[2022-09-14] MEDS ORDERED: AZITHROMYCIN 500 MG in DEXTROSE 5% 250 ML IV STA (07:14)
[2022-09-14] MEDS ORDERED: fentaNYL citrate 100 MCG/2 ML VIAL ONE (07:27)
[2022-09-14] MEDS ORDERED: LIDOCAINE 2%/EPINEPHRINE 1:200,000 20 ML SDV ONE (07:27)
[2022-09-14] MEDS ORDERED: MoRPHine SULFATE PF 1 MG/ML 10 ML AMP/VIAL ONE (07:59)
[2022-09-14] MEDS ORDERED: ONDANSETRON INJ 2 MG/ML 2 ML VIAL ONE (08:23)
[2022-09-14] MEDS ORDERED: OXYTOCIN 10 UNITS/ML 10ML VIAL ONE (08:23)
[2022-09-14] MEDS ORDERED: ePHEDrine sulfate 50 MG/ML AMP IV PRN (08:49)
[2022-09-14] MEDS ORDERED: MoRPHine SULFATE PF 1 MG/ML 10 ML AMP/VIAL EPI ONE (08:49)
[2022-09-14] MEDS ORDERED: NALOXONE HCL 0.08 MG in SYRINGE 1.8 ML IV PRN (08:49)
[2022-09-14] MEDS ORDERED: NALBUPHINE HCL INJ 10 MG/ML AMP IV PRN (08:49)
[2022-09-14] MEDS ORDERED: ONDANSETRON INJ 2 MG/ML 2 ML VIAL IV PRN (08:49)
[2022-09-14] MEDS ORDERED: LACTATED RINGER'S 500 ML IV PRN (08:49)
[2022-09-14] MEDS ORDERED: NALOXONE HCL 1 MG in SODIUM CHLORIDE 0.9% 1000ML 1,000 ML IV PRN (08:49)
[2022-09-14] MEDS ORDERED: diphenhydrAMINE 50 MG/ML VIAL IV PRN (08:49)
[2022-09-14] MEDS ORDERED: NALOXONE HCL 0.4 MG/1 ML VIAL/CARP IV PRN (08:49)
[2022-09-14] MEDS ORDERED: PROMETHAZINE HCL 25 MG in SODIUM CHLORIDE 0.9% 50 ML IV PRN ×2 (08:49→09:15)
[2022-09-14] MEDS ORDERED: SODIUM CHLORIDE 0.9% 1000ML 1,000 ML IV SCH (09:00)
--- NOTE | 2022-09-14 09:03 | Anesthesia Procedure Note ---
Date of Service September 14, 2022 Anesthesia Post Epidural Note Vital Signs Vital Signs: Temp Pulse Resp BP Pulse Ox 36.8 C 64 20 129/83 100 09/14/22 07:08 09/14/22 09:00 09/14/22 07:08 09/14/22 09:00 09/14/22 09:00 Pain Intensity Abdomen: Pain Intensity: 8 Notes Mental Status: alert / awake / arousable Nausea / Vomiting: adequately controlled Pain: adequately controlled Airway Patency, RR, SpO2: stable & adequate BP & HR: stable & adequate Hydration State: stable & adequate Neuraxial Anesthesia: was administered and sensory block is resolving Anesthetic Complications: no major complications apparent Epidural: Removed without complications and With tip intact
--- NOTE | 2022-09-14 09:14 | Post Operative Brief Note ---
Immediate Post Op Note v1 Date of Surgery September 14, 2022 Pre & Post Diagnosis Operation Date: 09/14/22 07:00 Pre-Op Diagnosis: 1. Arrest of decent 2. preeclampsia 3. trial of labor Post-Op Diagnosis: 1. Direct OP 2. Delivery of Live Male child at 0812 I identified the patient and participated in the time-out.: Yes Procedure Operation Date: 09/14/22 07:00 Actual Procedures p Section in LD - Enrike Morse MD Surgeon Enrike Morse MD Program Aide Group Work Bhavani Downs RN Estimated Blood Loss 500 Findings Consistent with Post-Op Diagnosis live male 8/9 Apgars weight 7Lbs. 6 oz. Fluids LR 1700 ml. Specimens placenta Drains Quijano Catheter (draining clear yellow urine) Anesthesia Type Labor Epidural Complications none Disposition Accompanied Patient To Recovery: Yes Overlapping Procedure I was present for: the critical portions of procedure. I was immediately available: during the entire case. Back up surgeon: was not required during procedure.
[2022-09-14] MEDS ORDERED: SENNA 8.6 MG TAB PO PRN (09:15)
[2022-09-14] MEDS ORDERED: HYDROCORTISONE ACETATE 25 MG SUPP PR PRN (09:15)
[2022-09-14] MEDS ORDERED: BENZOCAINE 20% AER SPR 82.5 GM CAN EXT PRN (09:15)
[2022-09-14] MEDS ORDERED: MAGNESIUM HYDROXIDE SUSP 30 ML UDC PO PRN (09:15)
[2022-09-14] MEDS: LABETALOL HCL 200 MG TAB PO SCH ×2 (09:25→20:38)
[2022-09-14] MEDS: KETOROLAC 30 MG/ML VIAL IV PRN (09:30)
--- NOTE | 2022-09-14 09:33 | Anesthesiology Progress Note ---
Date of Service September 14, 2022 Anesthesia Post Procedure Vital Signs Vital Signs: Temp Pulse Resp BP Pulse Ox 09/14/22 07:08 36.8 C 20 09/14/22 07:08 20 09/14/22 03:00 16 09/14/22 02:00 18 09/14/22 01:00 18 09/14/22 00:00 18 09/13/22 23:00 18 09/13/22 20:15 18 09/13/22 21:00 18 09/13/22 19:10 18 09/13/22 19:10 18 09/13/22 15:30 20 09/14/22 09:30 67 137/82 98 09/14/22 09:25 74 97 09/14/22 09:20 72 98 09/14/22 09:21 69 139/76 09/14/22 09:15 68 96 09/14/22 09:10 71 131/86 99 09/14/22 09:05 70 99 09/14/22 09:00 64 129/83 100 09/14/22 07:50 79 142/95 H 09/14/22 07:48 82 145/96 H 09/14/22 07:45 74 99 09/14/22 07:44 75 140/95 09/14/22 07:40 77 99 09/14/22 07:39 71 143/96 H 09/14/22 07:35 75 99 09/14/22 07:30 73 99 09/14/22 07:29 71 139/92 09/14/22 07:25 77 99 09/14/22 07:20 73 97 09/14/22 07:15 67 133/86 96 09/14/22 07:10 72 97 09/14/22 07:05 83 96 09/14/22 07:01 73 135/90 09/14/22 07:00 73 98 09/14/22 06:55 73 97 09/14/22 06:50 76 98 09/14/22 06:45 74 98 09/14/22 06:44 71 145/94 H 09/14/22 06:40 89 98 09/14/22 06:35 82 99 09/14/22 06:30 78 18 95 09/14/22 06:29 76 137/84 09/14/22 06:25 80 98 09/14/22 06:20 82 96 09/14/22 06:15 73 153/91 H 97 09/14/22 06:10 85 99 09/14/22 06:05 89 99 09/14/22 06:01 75 118/85 09/14/22 06:00 37.0 C 82 18 96 09/14/22 05:55 68 99 09/14/22 05:50 87 98 09/14/22 05:45 74 96 09/14/22 05:44 70 136/86 09/14/22 05:40 74 95 09/14/22 05:35 80 96 09/14/22 05:30 85 18 98 09/14/22 05:29 85 138/90 09/14/22 05:25 95 H 94 09/14/22 05:20 81 94 09/14/22 05:15 77 95 09/14/22 05:14 80 129/82 09/14/22 05:10 77 95 09/14/22 05:05 80 94 09/14/22 05:00 37.0 C 74 16 95 09/14/22 04:59 75 127/77 09/14/22 04:55 76 95 09/14/22 04:50 77 96 09/14/22 04:45 73 95 09/14/22 04:44 71 121/77 09/14/22 04:40 73 94 09/14/22 04:35 77 96 09/14/22 04:30 74 16 95 09/14/22 04:29 76 116/70 09/14/22 04:25 78 95 09/14/22 04:20 75 95 09/14/22 03:30 16 09/14/22 03:30 36.9 C 16 09/14/22 04:15 76 94 09/14/22 04:14 74 118/72 09/14/22 04:10 75 94 09/14/22 04:05 75 94 09/14/22 04:00 83 16 95 09/14/22 03:59 84 117/66 09/14/22 03:55 82 95 09/14/22 03:50 81 95 09/14/22 03:45 83 94 09/14/22 03:44 83 117/68 09/14/22 03:40 83 94 09/14/22 03:35 82 95 09/14/22 03:30 36.9 C 79 16 94 09/14/22 03:29 79 120/71 09/14/22 03:25 83 94 09/14/22 03:20 82 94 09/14/22 03:15 81 94 09/14/22 03:14 80 105/61 09/14/22 03:10 80 94 09/14/22 03:05 77 94 09/14/22 03:00 77 16 94 09/14/22 02:59 76 109/63 09/14/22 02:55 72 94 09/14/22 02:50 70 93 09/14/22 02:45 69 94 09/14/22 02:44 80 101/63 09/14/22 02:40 71 94 09/14/22 02:39 76 101/64 09/14/22 02:35 76 102/67 94 09/14/22 02:30 71 16 94 09/14/22 02:29 68 104/58 L 09/14/22 02:25 69 95 09/14/22 02:23 69 95/52 L 09/14/22 02:20 67 96 09/14/22 02:15 68 96 09/14/22 02:10 87 97 09/14/22 02:09 84 125/81 09/14/22 02:05 81 95 09/14/22 02:03 74 117/70 09/14/22 02:00 87 18 95 09/14/22 01:58 75 117/69 09/14/22 01:55 74 93 09/14/22 01:50 76 94 09/14/22 01:45 76 94 09/14/22 01:43 72 122/71 09/14/22 01:40 72 94 09/14/22 01:35 95 H 96 09/14/22 01:30 73 18 94 09/14/22 01:28 76 120/70 09/14/22 01:25 74 94 09/14/22 01:20 74 94 09/14/22 01:15 78 96 09/14/22 01:14 73 124/76 09/14/22 01:10 76 94 09/14/22 01:05 78 96 09/14/22 01:00 36.9 C 79 18 98 09/14/22 00:59 76 132/82 09/14/22 00:55 80 95 0226/23 00:50 77 98 09/14/22 00:45 70 94 09/14/22 00:43 70 142/86 H 09/14/22 00:40 71 94 09/14/22 00:35 70 94 09/14/22 00:30 72 18 94 09/14/22 00:28 71 137/80 09/13/22 23:00 18 09/13/22 23:00 18 09/14/22 00:25 71 94 09/14/22 00:20 71 93 09/14/22 00:15 71 94 09/14/22 00:13 70 132/80 09/14/22 00:10 72 94 09/14/22 00:05 69 94 09/14/22 00:00 67 93 09/13/22 23:59 69 130/78 09/13/22 23:55 70 93 09/13/22 23:50 70 94 09/13/22 23:45 69 93 09/13/22 23:44 70 139/76 09/13/22 23:40 73 94 09/13/22 23:35 66 94 09/13/22 23:30 69 18 96 09/13/22 23:28 69 134/83 09/13/22 23:25 73 95 09/13/22 23:20 94 09/13/22 23:20 70 09/13/22 23:20 72 95 09/13/22 23:15 94 09/13/22 23:15 67 09/13/22 23:15 68 95 09/13/22 23:14 76 141/76 H 09/13/22 23:10 78 94 09/13/22 23:05 75 96 09/13/22 23:02 73 93 09/13/22 23:00 88 18 96 09/13/22 22:59 101 H 157/94 H 09/13/22 22:56 68 122/81 09/13/22 22:55 71 119/81 93 09/13/22 22:50 79 95 09/13/22 22:48 70 93 09/13/22 22:45 87 97 09/13/22 22:43 82 129/84 09/13/22 22:40 80 96 09/13/22 22:37 75 92 09/13/22 22:35 84 96 09/13/22 22:30 37.0 C 87 18 95 09/13/22 22:28 87 130/79 09/13/22 22:25 75 96 09/13/22 22:20 75 97 09/13/22 22:15 90 97 09/13/22 22:14 77 123/78 09/13/22 22:10 76 95 09/13/22 22:05 76 95 09/13/22 22:00 78 18 96 09/13/22 21:59 76 122/74 09/13/22 21:56 75 94 09/13/22 21:55 78 96 09/13/22 21:50 75 95 09/13/22 21:45 78 96 09/13/22 21:44 83 129/76 09/13/22 21:40 78 95 09/13/22 21:36 79 94 09/13/22 21:35 78 96 09/13/22 21:00 18 09/13/22 21:00 18 09/13/22 21:30 74 18 95 09/13/22 21:28 76 119/66 09/13/22 21:25 85 97 09/13/22 21:20 80 95 09/13/22 21:15 76 120/69 95 09/13/22 21:12 78 94 09/13/22 21:10 75 95 09/13/22 21:07 74 94 09/13/22 21:05 85 97 09/13/22 21:00 94 09/13/22 21:00 78 09/13/22 21:00 77 94 09/13/22 20:58 83 125/77 09/13/22 20:55 81 94 09/13/22 20:53 79 93 09/13/22 20:50 80 96 09/13/22 20:45 84 93 09/13/22 20:44 83 129/86 09/13/22 20:40 86 95 09/13/22 20:39 81 94 09/13/22 20:35 78 93 09/13/22 20:33 81 94 09/13/22 20:30 37.0 C 84 18 93 09/13/22 20:28 77 09/13/22 20:28 81 119/69 94 09/13/22 20:25 87 94 09/13/22 20:20 78 94 09/13/22 20:17 74 94 02/25/23 20:15 84 98 09/13/22 20:13 75 120/75 09/13/22 20:10 92 H 97 09/13/22 20:08 84 94 09/13/22 20:05 89 97 09/13/22 20:00 80 18 95 09/13/22 19:58 77 121/82 09/13/22 19:55 85 98 09/13/22 19:50 86 97 09/13/22 19:45 81 99 09/13/22 19:44 81 122/74 09/13/22 19:40 85 99 09/13/22 19:35 78 99 09/13/22 19:30 78 18 99 09/13/22 19:28 72 127/90 09/13/22 19:25 73 98 09/13/22 19:20 68 98 09/13/22 19:15 36.5 C 82 18 98 09/13/22 19:13 67 127/93 09/13/22 19:10 71 98 09/13/22 19:05 74 99 09/13/22 19:00 78 99 09/13/22 18:58 72 132/94 09/13/22 18:55 94 09/13/22 18:55 68 09/13/22 18:55 68 96 09/13/22 18:50 80 98 09/13/22 18:45 83 98 09/13/22 18:43 68 135/102 H 09/13/22 18:40 77 96 09/13/22 18:35 75 96 09/13/22 18:30 72 97 09/13/22 18:28 73 133/96 09/13/22 18:25 74 98 09/13/22 18:20 73 98 09/13/22 17:59 20 09/13/22 17:59 20 09/13/22 18:15 72 97 09/13/22 18:13 77 138/97 09/13/22 18:10 78 97 09/13/22 18:05 73 98 09/13/22 18:00 70 96 09/13/22 17:58 69 131/92 09/13/22 17:55 71 97 09/13/22 17:50 74 98 09/13/22 17:45 72 97 09/13/22 17:43 71 136/91 09/13/22 17:40 74 96 09/13/22 17:35 76 98 09/13/22 17:30 70 131/83 96 09/13/22 17:01 20 09/13/22 17:01 37.0 C 20 09/13/22 17:25 69 96 09/13/22 17:20 78 99 09/13/22 17:15 85 97 09/13/22 17:13 80 120/78 09/13/22 17:10 94 H 95 09/13/22 17:08 79 94 09/13/22 17:05 90 95 09/13/22 17:03 84 94 09/13/22 17:00 76 96 09/13/22 16:58 79 113/65 09/13/22 16:54 79 94 09/13/22 16:55 80 94 09/13/22 16:50 85 95 09/13/22 16:49 80 94 09/13/22 16:45 77 96 09/13/22 16:43 78 111/67 09/13/22 16:40 82 96 09/13/22 16:35 82 97 09/13/22 16:30 80 96 09/13/22 16:28 74 117/72 09/13/22 16:25 81 97 09/13/22 16:20 74 97 09/13/22 16:15 74 97 09/13/22 16:13 72 113/70 09/13/22 16:10 81 98 09/13/22 16:05 85 98 09/13/22 16:00 76 98 09/13/22 15:58 81 18 121/75 09/13/22 15:55 82 97 09/13/22 15:50 87 98 09/13/22 15:45 89 99 09/13/22 15:44 80 136/90 09/13/22 15:40 78 98 09/13/22 15:35 74 97 09/13/22 15:30 89 100 09/13/22 15:28 75 126/80 09/13/22 15:25 73 98 09/13/22 15:20 75 98 09/13/22 15:15 81 97 09/13/22 15:13 75 124/78 09/13/22 15:10 83 95 09/13/22 15:05 81 95 09/13/22 15:01 85 94 09/13/22 15:00 82 95 09/13/22 14:58 36.9 C 81 18 113/73 09/13/22 14:55 83 96 09/13/22 14:51 80 93 09/13/22 14:50 88 96 09/13/22 14:45 80 95 09/13/22 14:43 78 121/79 09/13/22 14:40 78 95 09/13/22 14:35 77 95 09/13/22 14:30 75 98 09/13/22 14:28 77 118/81 09/13/22 14:25 78 97 09/13/22 14:20 76 99 09/13/22 13:59 18 09/13/22 13:59 18 09/13/22 14:15 82 99 09/13/22 14:13 74 126/81 09/13/22 14:10 72 95 09/13/22 14:05 71 95 09/13/22 14:00 75 95 09/13/22 13:58 72 122/79 09/13/22 13:55 74 94 09/13/22 13:50 76 97 09/13/22 13:45 77 98 09/13/22 13:43 67 125/85 09/13/22 13:40 78 95 09/13/22 13:36 69 94 09/13/22 13:35 69 95 09/13/22 13:30 78 121/79 95 09/13/22 13:25 76 97 09/13/22 12:59 18 09/13/22 12:59 36.5 C 18 09/13/22 13:20 79 97 09/13/22 13:15 77 97 09/13/22 13:13 70 123/84 09/13/22 13:10 82 97 09/13/22 13:05 76 97 09/13/22 13:00 84 97 09/13/22 12:58 75 122/82 09/13/22 12:55 78 97 09/13/22 12:50 69 95 09/13/22 12:45 79 96 09/13/22 12:44 77 20 126/81 09/13/22 12:40 79 94 09/13/22 12:35 87 95 09/13/22 12:34 81 94 09/13/22 12:30 83 95 0225/23 12:28 76 09/13/22 12:28 75 115/73 94 09/13/22 12:25 81 96 09/13/22 12:20 79 95 09/13/22 12:18 78 94 09/13/22 12:15 84 96 09/13/22 12:13 76 121/75 09/13/22 12:12 80 94 09/13/22 12:10 81 96 09/13/22 12:05 87 96 09/13/22 12:01 78 94 09/13/22 11:59 18 09/13/22 11:59 18 09/13/22 12:00 83 94 09/13/22 11:58 80 114/67 09/13/22 11:56 84 94 09/13/22 11:55 87 95 09/13/22 11:49 83 94 09/13/22 11:50 82 95 09/13/22 11:45 80 94 09/13/22 11:43 84 118/73 09/13/22 11:41 80 94 09/13/22 11:40 81 94 09/13/22 11:35 80 96 09/13/22 11:34 88 93 09/13/22 11:29 80 09/13/22 11:30 87 95 09/13/22 11:29 84 116/74 94 09/13/22 11:25 91 H 96 09/13/22 11:23 82 94 09/13/22 11:20 88 94 09/13/22 11:07 20 09/13/22 11:07 37.0 C 20 09/13/22 11:17 81 94 09/13/22 11:15 88 96 09/13/22 11:13 84 120/75 09/13/22 11:10 80 97 09/13/22 11:05 86 98 09/13/22 11:00 87 95 09/13/22 10:58 81 129/73 09/13/22 10:57 84 94 09/13/22 10:55 87 97 09/13/22 10:50 82 96 09/13/22 10:45 81 95 09/13/22 10:43 80 122/71 94 09/13/22 10:40 86 96 09/13/22 10:38 80 94 09/13/22 10:35 76 95 09/13/22 10:32 79 94 09/13/22 10:30 81 95 09/13/22 10:29 82 130/73 09/13/22 10:27 85 94 09/13/22 10:25 88 97 09/13/22 10:20 84 95 09/13/22 10:16 81 94 09/13/22 10:15 84 96 09/13/22 10:13 75 119/73 09/13/22 10:10 81 95 09/13/22 10:09 73 94 09/13/22 10:05 86 96 09/13/22 10:00 81 16 95 09/13/22 09:58 80 129/79 09/13/22 09:57 78 94 09/13/22 09:55 82 97 09/13/22 09:50 82 96 09/13/22 09:45 78 97 09/13/22 09:44 77 127/82 09/13/22 09:43 79 94 09/13/22 09:40 79 97 09/13/22 09:35 81 98 Pain Intensity Abdomen: Pain Intensity: 8 Transfer of Care Handoff Completed per policy Notes Mental Status: alert / awake / arousable Patient Amnestic to Procedure: Yes Nausea / Vomiting: adequately controlled Pain: adequately controlled Airway Patency, RR, SpO2: stable & adequate BP & HR: stable & adequate Hydration State: stable & adequate Neuraxial Anesthesia: was administered and sensory block is resolving Anesthetic Complications: no major complications apparent
[2022-09-14] MEDS ORDERED: ONDANSETRON 4 MG OD TAB PO PRN (10:10)
[2022-09-14] MEDS: OXYTOCIN 20 UNITS in LACTATED RINGER'S 1,000 ML IV SCH ×2 (11:46→21:36)
[2022-09-14] MEDS: SIMETHICONE 80 MG CHEW PO SCH ×3 (13:39→20:37)
--- NOTE | 2022-09-14 18:32 | Operative Report (OR) ---
DATE OF SURGERY: 09/14/2022. PREOPERATIVE DIAGNOSES: 1. Arrest of labor. 2. Preeclampsia. POSTOPERATIVE DIAGNOSES: 1. Arrest of labor. 2. Preeclampsia. 3. Direct OP presentation. PROCEDURE: Primary section, low segment transverse. SURGEON: Enrike Morse MD. ASSURANCE SERVICES MANAGER HE[employer] CARE: Bhavani Downs RN. ESTIMATED BLOOD LOSS: 500 mL. FINDINGS: Live male, Apgars 8 and 9, weight 7 pounds 6 ounces. TOTAL FLUIDS: 1700 mL. TOTAL URINE OUTPUT: 200 mL. ANESTHESIA: Labor epidural. DRAINS: Quijano catheter. CLINICAL HISTORY: The patient is a 27-year-old female, 1, para 0, who presents with preeclam psia. She was started on magnesium sulfate and induction was started. The patient progressed to omer roximately 8 cm with no further progress. A diagnosis of arrest of labor was made and the patient wa s brought to the OR for a section. She was given antibiotics preop and a timeout was called prior to the start of the procedure. DESCRIPTION OF PROCEDURE: Under satisfactory epidural, the patient was prepped and draped in the usu al sterile fashion. She was tested for adequacy of anesthesia. A low Pfannenstiel incision was made , carrying the incision down through several layers of the abdominal wall into the peritoneal cavity. Bladder flap was then made with Metzenbaum scissors. This was gently dissected down. Bladder blad e was entered. A low segment transverse incision was made. The incision was nicked. Amniotic sac w as noted to be clear. Incision was widened in the AP diameter. The baby was delivered in the direct OP position without difficulty. There was a cord clamp delay of 1 minute. Cord was doubly clamped and cut, the baby handed to administration physician present for the delivery, live male, Apgars were 9 and 9. C ord blood was obtained. Placenta delivered spontaneously and intact. The uterus was then exteriorized. Ring forceps were placed on both angles in the inferior margin. U terus closed in double layer closure with 0 Vicryl suture in a continuous locking fashion followed by an imbricating layer of 0 Vicryl suture. The initial sponge, needle, and instrument counts were fou nd to be correct. The tubes and ovaries bilaterally were found to be within normal limits. The cont ents of the pelvic and abdominal cavity were then irrigated to clear. The uterus was placed back int o the normal anatomical position. The fascia was then reapproximated from both ends using 0 Vicryl s uture in a continuous fashion. Subcuticular space was then irrigated and then closed with 2-0 plain suture, followed by irrigation of this layer and closure of the skin with 4-0 Monocryl suture. Steri -Strips were then applied and Telfa sponge dressing. Clear urine was noted at the end of the procedu re. The estimated blood loss was 500 mL. The final sponge, needle and instrument counts were found t o be correct. The patient was then placed supine on a stretcher and taken to recovery room in stable condition. Job ID: [id number]
[2022-09-14] MEDS: DOCUSATE SODIUM 100 MG CAP PO SCH (20:37)
[2022-09-14] MEDS: ASCORBIC ACID 500 MG TAB PO SCH (20:38)
[2022-09-15] MEDS: KETOROLAC 30 MG/ML VIAL IV PRN ×2 (00:08→07:30)
[2022-09-15 06:39] LABS: Basophils # (auto) 0.02 K/uL (0-0.2); Basophils % (auto) 0.2 %; Eosinophils # (auto) 0.02 K/uL (0-0.50); Eosinophils % (auto) 0.2 %; Hematocrit (blood only) 30.2 % (37.0-47.0); Hemoglobin 10.2 g/dl (12.0-16.0); Immature Granulocytes # (auto) 0.04 K/uL (0.01-0.20); Immature Granulocytes % (auto) 0.4 %; Lymphocytes # (auto) 1.81 K/uL (1.2-3.4); Lymphocytes % (auto) 19.1 %; Mean Corpuscular Hemoglobin 34.1 pg (25.0-34.0); Mean Corpuscular Hgb Conc 33.8 g/dL (32.0-36.0); Mean Platelet Volume 10.3 fL (9.4-12.4); Monocytes # (auto) 0.64 K/uL (0.11-0.59); Monocytes % (auto) 6.8 %; Neutrophils # (auto) 6.94 K/uL (1.40-6.50); Neutrophils % (auto) 73.3 %; Platelet Count 146 K/uL (130-400); RDW Coefficient of Variation 13.9 % (11.5-14.5); Red Blood Count 2.99 M/uL (4.20-5.40); White Blood Count 9.47 K/ul (4.8-10.8)
[2022-09-15] MEDS: FERROUS SULFATE 325 MG TAB PO SCH (07:29)
[2022-09-15] MEDS: PRENATAL VITAMIN 1 TAB PO SCH (07:29)
[2022-09-15] MEDS: SIMETHICONE 80 MG CHEW PO SCH ×4 (07:29→20:57)
[2022-09-15] MEDS: ESCITALOPRAM OXALATE 10 MG TAB PO SCH (07:30)
[2022-09-15] MEDS: DOCUSATE SODIUM 100 MG CAP PO SCH ×2 (07:30→20:58)
[2022-09-15] MEDS: LABETALOL HCL 200 MG TAB PO SCH ×2 (07:30→18:49)
[2022-09-15] MEDS: ASCORBIC ACID 500 MG TAB PO SCH (07:30)
[2022-09-15] MEDS ORDERED: PROMETHAZINE HCL 25 MG in SODIUM CHLORIDE 0.9% 50 ML IV PRN (08:48)
[2022-09-15] MEDS ORDERED: KETOROLAC 30 MG/ML VIAL IV PRN (08:48)
[2022-09-15] MEDS ORDERED: MEPERIDINE HCL 50 MG/ML CARP IV PRN (08:48)
[2022-09-15] MEDS ORDERED: diphenhydrAMINE Capsule 25 MG CAP PO PRN (08:50)
[2022-09-15] MEDS ORDERED: diphenhydrAMINE 50 MG/ML VIAL IV PRN (08:50)
[2022-09-15] MEDS ORDERED: ONDANSETRON INJ 2 MG/ML 2 ML VIAL IV PRN (08:50)
[2022-09-15] MEDS ORDERED: DIPHTHERIA/TETANUS/PERTUSSIS 0.5mL SYR/VIAL (Age 7+yrs) IM ONE (09:00)
--- NOTE | 2022-09-15 11:21 | Obstetrical Progress Note ---
Date of Service September 15, 2022 Assessment & Plan (1) Gestational hypertension: Preeclampsia POD #1 pt doing well continue day #1 care Results & Data ([facility]) Vital Signs (Past 12 Hours) Vital Signs Temp Pulse Pulse Resp BP BP Pulse Ox 09/15/22 07:10 18 97 09/15/22 08:12 16 96 09/15/22 08:12 16 09/15/22 08:12 36.8 C 75 16 128/90 96 09/15/22 06:09 18 95 09/15/22 06:09 18 09/15/22 05:37 16 95 09/15/22 05:37 16 09/15/22 04:50 16 95 09/15/22 04:50 16 09/15/22 03:40 16 96 09/15/22 03:40 36.9 C 16 09/15/22 03:40 16 09/15/22 02:30 16 96 09/15/22 02:30 16 09/15/22 01:42 18 96 09/15/22 01:42 16 09/15/22 00:45 18 96 09/15/22 00:45 79 18 96 09/15/22 00:45 18 09/14/22 23:50 18 97 09/14/22 23:50 37.0 C 18 09/14/22 23:50 18 09/15/22 08:13 76 128/90 09/15/22 08:10 78 96 09/15/22 08:05 74 97 09/15/22 08:00 81 96 09/15/22 07:55 76 97 09/15/22 07:50 76 98 09/15/22 07:45 77 99 09/15/22 07:40 81 98 09/15/22 07:35 80 99 09/15/22 07:30 80 99 09/15/22 07:29 73 138/95 09/15/22 07:25 74 100 09/15/22 07:20 91 H 100 09/15/22 07:15 79 96 09/15/22 07:10 74 95 09/15/22 07:05 74 96 09/15/22 07:00 77 96 09/15/22 06:55 78 95 09/15/22 06:50 69 96 09/15/22 06:45 69 96 09/15/22 06:40 71 96 09/15/22 06:35 68 96 09/15/22 06:30 69 95 09/15/22 06:25 66 95 09/15/22 06:20 68 95 09/15/22 06:15 65 96 09/15/22 06:10 67 97 09/15/22 06:05 78 95 09/15/22 06:03 64 144/90 H 09/15/22 06:00 73 97 09/15/22 05:55 68 96 09/15/22 05:50 90 94 09/15/22 05:45 77 95 09/15/22 05:40 76 96 09/15/22 05:35 78 95 09/15/22 05:30 75 95 09/15/22 05:25 79 95 09/15/22 05:20 74 95 09/15/22 05:15 77 95 09/15/22 05:10 77 95 09/15/22 05:05 77 95 09/15/22 05:00 73 95 09/15/22 04:55 73 95 09/15/22 04:50 78 95 09/15/22 04:45 79 95 09/15/22 04:40 78 95 09/15/22 04:35 76 95 09/15/22 04:31 76 91 09/15/22 04:30 73 94 09/15/22 04:25 75 94 09/15/22 04:20 67 95 09/15/22 04:15 71 95 09/15/22 04:10 69 94 09/15/22 04:05 70 94 09/15/22 04:00 69 94 09/15/22 03:55 71 94 09/15/22 03:50 73 93 09/15/22 03:45 75 93 09/15/22 03:40 81 96 09/15/22 03:41 69 124/80 09/15/22 03:35 81 94 09/15/22 03:30 78 94 09/15/22 03:25 76 94 09/15/22 03:20 93 H 96 09/15/22 03:15 91 H 94 09/15/22 03:10 92 H 94 09/15/22 03:05 77 94 09/15/22 03:00 80 94 09/15/22 02:55 84 97 09/15/22 02:50 88 97 09/15/22 02:45 79 96 09/15/22 02:40 78 96 09/15/22 02:35 78 95 09/15/22 02:30 74 94 09/15/22 02:25 90 96 09/15/22 02:20 73 95 09/15/22 02:15 82 96 09/15/22 02:10 82 96 09/15/22 02:05 76 95 09/15/22 02:00 87 96 09/15/22 01:55 75 95 09/15/22 01:50 75 96 09/15/22 01:45 88 94 09/15/22 01:40 79 96 09/15/22 01:35 74 94 09/15/22 01:30 83 92 09/15/22 01:25 85 95 09/15/22 01:20 84 96 09/15/22 01:15 75 95 09/15/22 01:10 81 95 09/15/22 01:05 72 95 09/15/22 01:00 92 H 93 09/15/22 00:55 72 96 09/15/22 00:50 74 96 09/15/22 00:45 79 96 09/15/22 00:40 76 96 09/15/22 00:35 87 95 09/15/22 00:30 80 94 09/15/22 00:25 90 93 09/15/22 00:20 84 95 09/15/22 00:15 85 95 09/15/22 00:10 78 96 09/15/22 00:05 79 95 09/15/22 00:00 80 96 09/14/22 23:55 98 09/14/22 23:55 84 09/14/22 23:50 97 09/14/22 23:50 78 09/14/22 23:50 77 09/14/22 23:50 133/81 09/14/22 23:45 96 09/14/22 23:45 84 09/14/22 23:40 95 09/14/22 23:40 84 09/14/22 23:35 95 09/14/22 23:35 78 09/14/22 23:30 95 09/14/22 23:30 85 09/14/22 23:25 96 09/14/22 23:25 86 09/14/22 23:20 95 09/14/22 23:20 88 O2 Del Method 09/15/22 07:10 09/15/22 08:12 09/15/22 08:12 09/15/22 08:12 Room Air 09/15/22 06:09 09/15/22 06:09 09/15/22 05:37 09/15/22 05:37 09/15/22 04:50 09/15/22 04:50 09/15/22 03:40 09/15/22 03:40 09/15/22 03:40 09/15/22 02:30 09/15/22 02:30 09/15/22 01:42 09/15/22 01:42 09/15/22 00:45 09/15/22 00:45 09/15/22 00:45 09/14/22 23:50 09/14/22 23:50 09/14/22 23:50 09/15/22 08:13 09/15/22 08:10 09/15/22 08:05 09/15/22 08:00 09/15/22 07:55 09/15/22 07:50 09/15/22 07:45 09/15/22 07:40 09/15/22 07:35 09/15/22 07:30 09/15/22 07:29 09/15/22 07:25 09/15/22 07:20 09/15/22 07:15 09/15/22 07:10 09/15/22 07:05 09/15/22 07:00 09/15/22 06:55 09/15/22 06:50 09/15/22 06:45 09/15/22 06:40 09/15/22 06:35 09/15/22 06:30 09/15/22 06:25 09/15/22 06:20 09/15/22 06:15 09/15/22 06:10 09/15/22 06:05 09/15/22 06:03 09/15/22 06:00 09/15/22 05:55 09/15/22 05:50 09/15/22 05:45 09/15/22 05:40 09/15/22 05:35 09/15/22 05:30 09/15/22 05:25 09/15/22 05:20 09/15/22 05:15 09/15/22 05:10 09/15/22 05:05 09/15/22 05:00 09/15/22 04:55 09/15/22 04:50 09/15/22 04:45 09/15/22 04:40 09/15/22 04:35 09/15/22 04:31 09/15/22 04:30 09/15/22 04:25 09/15/22 04:20 09/15/22 04:15 09/15/22 04:10 09/15/22 04:05 09/15/22 04:00 09/15/22 03:55 09/15/22 03:50 09/15/22 03:45 09/15/22 03:40 09/15/22 03:41 09/15/22 03:35 09/15/22 03:30 09/15/22 03:25 09/15/22 03:20 09/15/22 03:15 09/15/22 03:10 09/15/22 03:05 09/15/22 03:00 09/15/22 02:55 09/15/22 02:50 09/15/22 02:45 09/15/22 02:40 09/15/22 02:35 09/15/22 02:30 09/15/22 02:25 09/15/22 02:20 09/15/22 02:15 09/15/22 02:10 09/15/22 02:05 09/15/22 02:00 09/15/22 01:55 09/15/22 01:50 09/15/22 01:45 09/15/22 01:40 09/15/22 01:35 09/15/22 01:30 09/15/22 01:25 09/15/22 01:20 09/15/22 01:15 09/15/22 01:10 09/15/22 01:05 09/15/22 01:00 09/15/22 00:55 09/15/22 00:50 09/15/22 00:45 09/15/22 00:40 09/15/22 00:35 09/15/22 00:30 09/15/22 00:25 09/15/22 00:20 09/15/22 00:15 09/15/22 00:10 09/15/22 00:05 09/15/22 00:00 09/14/22 23:55 09/14/22 23:55 09/14/22 23:50 09/14/22 23:50 09/14/22 23:50 09/14/22 23:50 09/14/22 23:45 09/14/22 23:45 09/14/22 23:40 09/14/22 23:40 09/14/22 23:35 09/14/22 23:35 09/14/22 23:30 09/14/22 23:30 09/14/22 23:25 09/14/22 23:25 09/14/22 23:20 09/14/22 23:20
[2022-09-15 12:29] LABS: Albumin Level 2.9 gm/dl (3.4-5.0); BUN Creatinine Ratio 10.3 (10-20); Bilirubin,Total 0.4 mg/dl (0.2-1.0); Creatinine Clr Calc Pharmacy 122.3 ml/min; Est GFR (African American) 119.1 ml/min; Est GFR (Non-African American) 102.7 ml/min; Globulin 2.8 gm/dl (2.5-4.0); Potassium 4.2 mmol/L (3.5-5.1); Total Protein 5.7 gm/dl (6.0-8.3)
[2022-09-15] MEDS: IBUPROFEN 600 MG TAB PO PRN ×2 (17:30→21:39)
[2022-09-15] MEDS: oxyCODONE/ACETAMINOPHEN 5mg/325mg TAB PO PRN ×2 (17:30→21:39)
[2022-09-15] MEDS ORDERED: bisacodyL 5 MG TABEC PO SCH (20:00)
[2022-09-16] MEDS: ASCORBIC ACID 500 MG TAB PO SCH ×2 (02:04→08:55)
[2022-09-16 06:24] LABS: Hematocrit (blood only) 28.7 % (37.0-47.0); Hemoglobin 9.6 g/dl (12.0-16.0)
[2022-09-16] MEDS: oxyCODONE/ACETAMINOPHEN 5mg/325mg TAB PO PRN ×2 (06:35→12:13)
[2022-09-16] MEDS: IBUPROFEN 600 MG TAB PO PRN ×2 (06:36→12:12)
[2022-09-16] MEDS: SIMETHICONE 80 MG CHEW PO SCH ×2 (08:52→13:56)
[2022-09-16] MEDS: FERROUS SULFATE 325 MG TAB PO SCH (08:53)
[2022-09-16] MEDS: PRENATAL VITAMIN 1 TAB PO SCH (08:53)
[2022-09-16] MEDS: DOCUSATE SODIUM 100 MG CAP PO SCH (08:53)
[2022-09-16] MEDS: LABETALOL HCL 200 MG TAB PO SCH (08:54)
[2022-09-16] MEDS: ESCITALOPRAM OXALATE 10 MG TAB PO SCH (08:55)
[2022-09-16] MEDS ORDERED: bisacodyL 10 MG SUPP PR PRN (09:07)
--- NOTE | 2022-09-16 10:45 | Obstetrical Progress Note ---
Date of Service September 16, 2022 Subjective Ambulation: ambulating normally Voiding: no voiding problems Passing Gas:: Yes Diet Tolerance:: regular diet Lochia:: Small Feeding Type:: breast feeding Current Pain Level(1-10): 0 Physical Exam Constitutional WD/WN, vitals as above Gastrointestinal (Abdomen) Inspection/Auscultation: abdomen normal to inspection and + abdominal surgical incision incision c/d/i Musculoskeletal Extremities: extremities normal to inspection Neurologic patellar DTR's 2+ bilat, sensation intact Results & Data ([facility]) Vital Signs (Past 12 Hours) Vital Signs Temp Pulse Resp BP Pulse Ox O2 Del Method 09/16/22 07:54 36.7 C 73 16 134/90 98 Room Air 09/15/22 23:15 Room Air 09/15/22 23:15 36.9 C 78 18 131/87 98 Room Air Laboratory Results Laboratory Results - last 72 hr 09/14/22 09/15/22 09/15/22 04:31 05:56 11:42 WBC 9.47 RBC 2.99 L Hgb 10.2 L Hct 30.2 L MCV 101.0 H MCH 34.1 H MCHC 33.8 RDW Std Deviation 51.0 H RDW Coeff of Osmany 13.9 Plt Count 146 MPV 10.3 Immature Gran % (Auto) 0.4 Neut % (Auto) 73.3 Lymph % (Auto) 19.1 Granite % (Auto) 6.8 Eos % (Auto) 0.2 Baso % (Auto) 0.2 Neut # (Auto) 6.94 H Lymph # (Auto) 1.81 Granite # (Auto) 0.64 H Eos # (Auto) 0.02 Baso # (Auto) 0.02 Immature Gran # (Auto) 0.04 Sodium 136 Potassium 4.2 Chloride 103 Carbon Dioxide 28 Anion Gap 5 BUN 8 Creatinine 0.78 Est Cr Clr Drug Dosing 122.3 Est GFR ( Amer) 119.1 Est GFR (Non-Af Amer) 102.7 BUN/Creatinine Ratio 10.3 Glucose 97 Calcium 8.0 L Magnesium (Sulf Ther) 5.8 Total Bilirubin 0.4 AST 18 ALT 7 Alkaline Phosphatase 121 H Total Protein 5.7 L Albumin 2.9 L Globulin 2.8 Albumin/Globulin Ratio 1.0 09/16/22 05:59 WBC RBC Hgb 9.6 L Hct 28.7 L MCV MCH MCHC RDW Std Deviation RDW Coeff of Osmany Plt Count MPV Immature Gran % (Auto) Neut % (Auto) Lymph % (Auto) Granite % (Auto) Eos % (Auto) Baso % (Auto) Neut # (Auto) Lymph # (Auto) Granite # (Auto) Eos # (Auto) Baso # (Auto) Immature Gran # (Auto) Sodium Potassium Chloride Carbon Dioxide Anion Gap BUN Creatinine Est Cr Clr Drug Dosing Est GFR ( Amer) Est GFR (Non-Af Amer) BUN/Creatinine Ratio Glucose Calcium Magnesium (Sulf Ther) Total Bilirubin AST ALT Alkaline Phosphatase Total Protein Albumin Globulin Albumin/Globulin Ratio
[2022-09-16] MEDS ORDERED: MEASLES, MUMPS & RUBELLA VIRUS VIAL SQ ONE (14:30)
== END 2022-09-16 15:20 | disposition home or self-care (01) | DRG 788 ==
LOC: OPB 17:23 → 4S1 17:25 → 4E2 09-15 11:12